=== PATIENT | female | born 1990 | race African-American/Black ===

== ENCOUNTER 2018-04-20 09:09 | Emergency (ER) | payer SELFPAY ==
[2018-04-20] MEDS ORDERED: HYDROcodone/Acetaminophen 5/325 mg Tablet ONE (09:30)
--- NOTE | 2018-04-20 18:35 | RAD ---
LEFT FOOT THREE VIEWS: 04/20/2018 FINDINGS: There is a fracture at the base of the fifth metatarsal that is minimally displaced. The remainder o f the foot apparent intact. The joints appear normal. IMPRESSION: Fracture at the base of the fifth metatarsal. POS: HOME
== END 2018-04-20 10:01 | disposition home or self-care (01) ==
LOC: BURERS 09:09
DX: S92.352A Displaced fracture of fifth metatarsal bone, left foot, initial encounter for closed fracture (principal); F17.210 Nicotine dependence, cigarettes, uncomplicated; X50.1XXA Overexertion from prolonged static or awkward postures, initial encounter; Y93.41 Activity, dancing
CPT/HCPCS: 29515

== ENCOUNTER 2020-02-27 11:08 | Emergency (ER) | payer OTHER, SELFPAY | END 2020-02-27 12:00 | disposition home or self-care (01) | LOC: BURERS 11:08 | DX: J39.9 Disease of upper respiratory tract, unspecified (principal); B97.89 Other viral agents as the cause of diseases classified elsewhere; F17.210 Nicotine dependence, cigarettes, uncomplicated | CPT/HCPCS: 99283 ==